=== PATIENT | male | born 1995 | race Caucasian/White ===

== ENCOUNTER 2020-03-07 14:15 | Emergency (ER) | payer OTHER ==
[2020-03-07] MEDS ORDERED: Ketorolac 60 MG/2 ML SDV IM ONE (14:18)
--- NOTE | 2020-03-07 14:22 | EDM.PDOC ---
ED HPI GENERAL MEDICAL PROBLEM - General Stated Complaint: CRUSHED LEFT HAND Time Seen by Provider: 03/07/20 14:15 Source of Information: Reports: Patient History Limitations: Reports: No Limitations - History of Present Illness INITIAL COMMENTS - FREE TEXT/NARRATIVE: c/o L hand injury R handed on equipment at [employer] a 70 lb spout for sugar fell on his L hand, has pain in the middle dorsal area of L hand, radiates into index and middle fingers - Related Data Allergies Allergy/AdvReac Type Severity Reaction Status Date / Time No Known Allergies Allergy Verified 03/07/20 14:50 Home Meds: Home Meds NK [No Known Home Meds] 03/07/20 [History] Review of Systems - Review of Systems Review Of Systems: See Below Constitutional: Reports: No Symptoms Eyes: Reports: No Symptoms Ears: Reports: No Symptoms Nose: Reports: No Symptoms Mouth/Throat: Reports: No Symptoms Respiratory: Reports: No Symptoms Cardiovascular: Reports: No Symptoms GI/Abdominal: Reports: No Symptoms Genitourinary: Reports: No Symptoms Musculoskeletal: Reports: Hand Pain Skin: Reports: No Symptoms Neurological: Reports: No Symptoms Psychiatric: Reports: No Symptoms ED EXAM, GENERAL - Physical Exam Exam: See Below Exam Limited By: No Limitations General Appearance: Alert, WD/WN, Mild Distress Respiratory/Chest: No Respiratory Distress Cardiovascular: Regular Rate, Rhythm Extremities: Other (left hand will mild swell and slight indentation of skin over 2-4th MCs, skin intact, no ecchymosis, possible increase tender over 2nd MCP, carpals NT, fingers NT, good flex/ext of all fingers without hesitation) Course - Orders/Labs/Meds Orders: Active Orders 24 hr Category Date Time Status Hand Comp Min 3V Lt [CR] Stat Exams 03/07/20 14:18 Ordered Meds: Medications Discontinued Medications Generic Name Dose Route Start Last Admin Trade Name Freq PRN Reason Stop Dose Admin Ketorolac Tromethamine 60 mg 03/07/20 14:18 03/07/20 14:32 Toradol IM 03/07/20 14:19 60 mg ONETIME ONE Administration - Re-Assessments/Exams Free Text/Narrative Re-Assessment/Exam: 03/07/20 15:08 pain has been using ice while in ED, pt is pain free after ice and Toradol pt says his family has an ortho they like in [place], he plans to f/u there, may also see PCP or go to [facility] walk-in [facility] no work until cleared by his physician in 4 days Departure - Departure Time of Disposition: 15:04 Disposition: Home, Self-Care 01 Condition: Good Clinical Impression: Contusion of left hand - Discharge Information *PRESCRIPTION DRUG MONITORING PROGRAM REVIEWED*: Not Applicable *COPY OF PRESCRIPTION DRUG MONITORING REPORT IN PATIENT MALIKA: Not Applicable Instructions: Hand Contusion, How to Use Cold Therapy Referrals: PCP,None [Primary Care Provider] - Forms: ED Return to Work/School Form Additional Instructions: For pain and inflammation, take ibuprofen 200 mg 3 tabs 4 times a day for 4 d ays, longer if needed. For pain and inflammation, take acetaminophen 500 mg 2 tabs 4 times a day for 4 days, longer if need. Use ice for 10 minutes every 1-2 hours as needed for today and tomorrow, longer if needed. Avoid lifting and gripping with the left hand for the next 4 days. No work for 4 days. See your doctor in 4 days for further evaluation and recommendations and authorization to return to work. - My Orders Last 24 Hours: My Active Orders 03/07/20 14:18 Hand Comp Min 3V Lt [CR] Stat - Assessment/Plan Last 24 Hours: My Active Orders 03/07/20 14:18 Hand Comp Min 3V Lt [CR] Stat
== END 2020-03-07 15:20 | disposition home or self-care (01) ==
LOC: FB.ED 14:15
DX: S60.222A Contusion of left hand, initial encounter (principal); W20.8XXA Other cause of strike by thrown, projected or falling object, initial encounter
CPT/HCPCS: 73130; 96372; 99000; 99283; J1885